=== PATIENT | female | born 1995 | race Hispanic/Latino ===

== ENCOUNTER 2022-07-12 11:36 | Inpatient (IN) | payer BC ==
--- OUTSIDE RECORDS SUMMARY | 2022-07-12 11:40 | XMS REPORT | Continuity of Care Document ---
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 METABOLIC [id number] 07:06:00 Test Item Value Reference Range Interpretation Comments SODIUM (test code = NA) mmol/L 136-145 POTASSIUM (test code = K) mmol/L 3.5-5.1 CHLORIDE (test code = CL) mmol/L 98-107 CARBON DIOXIDE (test code = CO2) mmol/L 21-32 ANION GAP (test code = GAP) 10-20 GLUCOSE (test code = GLU) mg/dL 74-106 BLOOD UREA NITROGEN (test code = BUN) mg/dL 7-18 GLOMERULAR FILTRATION RATE (test code mL/min >=60 = GFR) CREATININE (test code = CREAT) mg/dL 0.55-1.02 BUN/CREATININE RATIO (test code = 10-20 BUN/CREA) CALCIUM (test code = CA) mg/dL 8.5-10.1 HEPATIC FUNCTION [id number] 07:06:00 Test Item Value Reference Range Interpretation Comments TOTAL PROTEIN (test code = PROT) gram/dL 6.4-8.2 ALBUMIN (test code = ALB) g/dL 3.4-5.0 GLOBULIN (test code = GLOB) gram/dL 2.7-4.2 ALBUMIN/GLOBULIN RATIO (test code = 0.75-1.50 A/G) BILIRUBIN TOTAL (test code = BILT) mg/dL 0.0-1.0 BILIRUBIN DIRECT (test code = BILD) mg/dL 0.0-0.20 SGOT/AST (test code = AST) IUnit/L 15-37 SGPT/ALT (test code = ALT) IUnit/L 12-78 ALKALINE PHOSPHATASE TOTAL (test IUnit/L 45-117 code = ALKP) HCG SERUM [id number] 07:06:00 Test Item Value Reference Range Interpretation Comments HCG SERUM QUAL (test NEGATIVE NEGATIVE This HC GQL test is NOT code = HCGQL) applicable for MALE patients.Check with nurse about probable order error.If Tumor Marker Test needed, nu rse should order test "HCG TU"(Test #550.08397)---- - [id number] 07:06:00 Test Item Value Reference Range Interpretation Comments TROPONIN-I (test code = TROPI) ng/mL 0-0.045 CBC W/AUTO [id number] 07:02:00 Test Item Value Reference Range Interpretation Comments WHITE BLOOD CELL (test code = 11.1 K/mm3 4.5-12.5 N WBC) RED BLOOD CELL (test code = 4.77 mill/mm3 3.7-5.2 N RBC) HEMOGLOBIN (test code = HGB) 11.7 gram/dL 11.5-15.5 N HEMATOCRIT (test code = HCT) 37.7 % 36.0-46.0 N MEAN CELL VOLUME (test code = 79.0 fL 80-98 L MCV) MEAN CELL HGB (test code = MCH) 24.5 picogram 27.0-33.0 L MEAN CELL HGB CONCETRATION 31.0 gram/dL 33.0-36.0 L (test code = MCHC) RED CELL DISTRIBUTION WIDTH 15.7 % 11.6-16.2 N (test code = RDW) RED CELL DISTRIBUTION WIDTH SD 44.8 fL 37.0-51.0 N (test code = RDW-SD) PLATELET COUNT (test code = 197 K/mm3 150-450 N PLT) MEAN PLATELET VOLUME (test code 10.9 fL 6.7-11.0 N = MPV) NEUTROPHIL % (test code = NT%) 90.1 % 39.0-69.0 H IMMATURE GRANULOCYTE % (test 0.4 % 0.0-5.0 N code = IG%) LYMPHOCYTE % (test code = LY%) 4.3 % 25.0-55.0 L MONOCYTE % (test code = MO%) 4.4 % 0.0-10.0 N EOSINOPHIL % (test code = EO%) 0.5 % 0.0-5.0 N BASOPHIL % (test code = BA%) 0.3 % 0.0-1.0 N NUCLEATED RBC % (test code = 0.0 % 0-0 N NRBC%) NEUTROPHIL # (test code = NT#) 9.97 K/mm3 1.8-7.7 H IMMATURE GRANULOCYTE # (test 0.04 x10 3/uL 0-0.03 H code = IG#) LYMPHOCYTE # (test code = LY#) 0.47 K/mm3 1.0-5.0 L MONOCYTE # (test code = MO#) 0.49 K/mm3 0-0.8 N EOSINOPHIL # (test code = EO#) 0.05 K/mm3 0.0-0.5 N BASOPHIL # (test code = BA#) 0.03 K/mm3 0.0-0.2 N NUCLEATED RBC # (test code = 0.00 K/mm3 0.0-0.1 N NRBC#) MANUAL DIFF REQUIRED (test code NO = MDIFF) CBC W/AUTO [id number] 06:52:00 Test Item Value Reference Range Interpretation Comments WHITE BLOOD CELL (test code = K/mm3 4.5-12.5 WBC) RED BLOOD CELL (test code = RBC) mill/mm3 3.7-5.2 HEMOGLOBIN (test code = HGB) 11.7 gram/dL 11.5-15.5 N HEMATOCRIT (test code = HCT) 37.7 % 36.0-46.0 N MEAN CELL VOLUME (test code = fL 80-98 MCV) MEAN CELL HGB (test code = MCH) picogram 27.0-33.0 MEAN CELL HGB CONCETRATION (test gram/dL 33.0-36.0 code = MCHC) RED CELL DISTRIBUTION WIDTH % 11.6-16.2 (test code = RDW) RED CELL DISTRIBUTION WIDTH SD fL 37.0-51.0 (test code = RDW-SD) PLATELET COUNT (test code = PLT) K/mm3 150-450 MEAN PLATELET VOLUME (test code fL 6.7-11.0 = MPV) NEUTROPHIL % (test code = NT%) % 39.0-69.0 IMMATURE GRANULOCYTE % (test % 0.0-5.0 code = IG%) LYMPHOCYTE % (test code = LY%) % 25.0-55.0 MONOCYTE % (test code = MO%) % 0.0-10.0 EOSINOPHIL % (test code = EO%) % 0.0-5.0 BASOPHIL % (test code = BA%) % 0.0-1.0 NEUTROPHIL # (test code = NT#) K/mm3 1.8-7.7 LYMPHOCYTE # (test code = LY#) K/mm3 1.0-5.0 MONOCYTE # (test code = MO#) K/mm3 0-0.8 EOSINOPHIL # (test code = EO#) K/mm3 0.0-0.5 BASOPHIL # (test code = BA#) K/mm3 0.0-0.2 Urine [id number] 19:21:00 Test Item Value Reference Range Interpretation Comments Urine Color (test code = 5778-6) YELLOW [facility]LLOW [facility] [id number] 19:21:00 Test Item Value Reference Range Interpretation Comments Urine Clarity (test code = 91947-3) HAZY CLEAR [facility] Specific [id number] 19:21:00 Test Item Value Reference Range Interpretation Comments Urine Specific [place] (test code = 1.010 1.010-1.025 5811-5) [facility] [id number] 19:21:00 Test Item Value Reference Range Interpretation Comments Urine pH (test code = 23080-9) 7 5-7 [facility] Leukocyte [id number] 19:21:00 Test Item Value Reference Range Interpretation Comments Urine Leukocyte Esterase (test code NEGATIVE NEGATIVE = 5799-2) [facility] [id number] 19:21:00 Test Item Value Reference Range Interpretation Comments Urine Nitrite (test code = 41317-0) NEGATIVE NEGATIVE [facility] [id number] 19:21:00 Test Item Value Reference Range Interpretation Comments Urine Protein (test code = 5804-0) NEGATIVE NEGATIVE [facility] Glucose ([id number] 19:21:00 Test Item Value Reference Range Interpretation Comments Urine Glucose (UA) (test code = NEGATIVE NEGATIVE 2349-9) [facility] [id number] 19:21:00 Test Item Value Reference Range Interpretation Comments Urine Ketones (test code = 35833-6) NEGATIVE NEGATIVE [facility] [id number] 19:21:00 Test Item Value Reference Range Interpretation Comments Urine Urobilinogen (test code = 0.2 0.2-1 18040-9) [facility] [id number] 19:21:00 Test Item Value Reference Range Interpretation Comments Urine Bilirubin (test code = 1978-6) NEGATIVE NEGATIVE [facility] [id number] 19:21:00 Test Item Value Reference Range Interpretation Comments Urine Blood (test code = 34212-9) NEGATIVE NEGATIVE [facility] [id number] 19:21:00 Test Item Value Reference Range Interpretation Comments Urine WBC (test code = 5821-4) 0-5 0-5 [facility] [id number] 19:21:00 Test Item Value Reference Range Interpretation Comments Urine RBC (test code = 88580-0) NONE 0-5 [facility] [id number] 19:21:00 Test Item Value Reference Range Interpretation Comments Urine Bacteria (test code = 74909-9) FEW NONE [facility] Epithelial [id number] 19:21:00 Test Item Value Reference Range Interpretation Comments Urine Epithelial Cells (test code = FEW NONE 21114-2) [facility] [id number] 19:21:00 Test Item Value Reference Range Interpretation Comments Urine Mucus (test code = 8247-9) FEW RARE H [facility] [id number] 19:01:00 [facility] [address] [address] PatientName: SHIV RODRIGUEZ MR #: [id number] : 1995 Age/Sex: 22/F Req #: [id number] Adm Physician: Ordered by: ABDIRASHID LY BANKING MANAGEMENT CONSULTING MANAGER Report #: [id number] Location: ER Room/Bed: ___ Procedure: [id number] US/US TRANSVAGINAL Exam Date: 08/27/18 Exam Time: 1751 REPORT STATUS: Signed EXAM: US TRANSVAGINAL INDICATION: Accident, evaluate well being COMPARISON: None TECHNIQUE: Transabdominal and transvaginal grayscale and color doppler sonographic images of the pelvis were obtained. Transvaginal imaging was medically necessary to better evaluate the fetus. FINDINGS: UTERUS: Orientation: Anteverted Size: 11.3 x 7.7 x 8.8 Mass: None Cervix: Normal GESTATIONAL SAC: Intrauterine, normal in appearance. No subchorionic hemorrhage. YOLK SAC: Visualized EMBRYO/FETUS: [place]-rump length: 4.8 cm Estimated sonographic gestational age: 11w 4d Cardiac activity: 163 bpm RIGHT OVARY: Size: 5.7 x 2.1 x 2.2 Abnormal mass/cyst: 1.5 cm corpus cyst. LEFT OVARY: Size: 3.7 x 2.1 x 3 Abnormal mass/cyst: None Small amount of pelvic fluid or adnexal mass. IMPRESSION: Single living intrauterine . Sonographic gestational age estimated at 11weeks 4days. Signed by: Dr. Bharat Caballero M.D. on 08/27/2018 7:03 PM Dictated By: BHRAAT CABALLERO MD 02 Transcribed By: ANISHA on 08/27/181902 COPY TO: ABDIRASHID LY NP
[2022-07-12] MEDS ORDERED: NA CHLORIDE 0.9% 1,000 ML ONE (12:19)
[2022-07-12 12:40] LABS: Absolute Lymphocytes (CBC) 0.8 K/uL (0.7-4.9); Hematocrit 37.2 % (36.0-45.0); Lymphocytes % 3.2 % (15.3-44.8); MCV 77.2 fL (80-100); MPV 9.1 fL (7.6-11.3); RBC Red Blood Cell Count 4.82 M/uL (3.86-4.86)
[2022-07-12 12:59] LABS: Albumin 3.7 g/dL (3.4-5.0); Bilirubin Total 0.9 mg/dL (0.2-1.0); Potassium 3.3 mmol/L (3.5-5.1); Protein, Total 8.3 g/dL (6.4-8.2)
[2022-07-12] MEDS ORDERED: PIPERACIL/TAZO 3.375 GM VIAL IV ONE (13:07)
[2022-07-12] MEDS ORDERED: NA CHLORIDE 0.9% 100 ML ONE (13:07)
[2022-07-12 13:14] LABS: Urine Blood 3+ (Negative); Urine Glucose Negative (Negative); Urine Protein 2+ (Negative); Urine pH 6.5 (5.0-7.0)
--- NOTE | 2022-07-12 14:16 | RAD REPORT ---
EXAM DESCRIPTION: CT - Abdomen Pelvis W Contrast - 07/12/2022 1:34 pm CLINICAL HISTORY: Abdominal pain, right lower abdomen. Vomiting COMPARISON: None. TECHNIQUE: Biphasic, helical CT imaging of the abdomen and pelvis was performed following intravenou s administration of 100 mL Isovue-[address] scans are performed using dose optimization technique as appropriate and may include automated exposure control or mA/KV adjustment according to patient size. FINDINGS: No suspicious findings in the lung bases. The liver, spleen, and pancreas show no suspicious findings. Gallbladder and biliary tree are also wi thout suspicious finding. Symmetric renal function is seen. No suspicious renal mass. No left hydronephrosis. . Inflammatory changes adjacent to the cecal wall, with heterogeneous enhancement at the base of the ap pendix. Lobulated marginal enhancement is seen at and inferior to that region, see venous phase axial images 64- 59/86. A small echogenic focus near the base of the appendix on axial image 54 may repres ent a small appendicolith. The distal appendix is distended with mucosal hyperenhancement, tracking a long the right pelvic sidewall, measuring 16 millimeter in caliber. The distal appendix and the adjac ent inflammatory changes about the mid to distal right ureter, which demonstrates moderate distention with mild urothelial enhancement as seen on axial image 46. There is mild right hydronephrosis. No f ree air, free fluid or inflammatory stranding. No hernia, mass or bulky lymphadenopathy. The urinary bladder is without significant finding. IUD appears to be in satisfactory position within the uterus. Mild free fluid layering in the pelvis. No suspicious bony findings. IMPRESSION: Right lower quadrant inflammatory changes contiguous with the cecal bulb, with distentio n of the distal appendix. Findings are concerning for acute appendicitis with rupture. Mild free flui d layering in the pelvis. The inflammatory changes involve the mid to distal right ureter. There is right mild hydroureteroneph rosis with reactive urothelial enhancement just above the level of the inflammation. The findings were communicated to Ze Valentine on 07/12/2022 at 14:08 hours.
--- NOTE | 2022-07-12 14:24 | ER ---
Nurse's Notes [facility] Name: Franny Marc Age: 26 yrs Sex: Female : 1995 Arrival Date: 07/12/2022 Time: 11:37 Bed 10 Private MD: Diagnosis: Acute appendicitis with localized peritonitis-with rupture;Hypokalemia Presentation: 07/12 11:51 Chief complaint: Patient states: [facility]; I started having jh5 right lower abdominal pain yesterday all of a sudden and in the last 24 hours i have vomited 6-7x. Coronavirus screen: Vaccine status: Patient reports receiving the 2nd dose of the covid vaccine. Client denies travel out of the [place] in the last 14 days. Ebola Screen: Patient negative for fever greater than or equal to 101.5 degrees Fahrenheit, and additional compatible Ebola Virus Disease symptoms Patient denies exposure to infectious person. Patient denies travel to an Ebola-affected area in the 21 days before illness onset. Initial Sepsis Screen: Does the patient meet any 2 criteria? No. Patient's initial sepsis screen is negative. Does the patient have a suspected source of infection? No. Patient's initial sepsis screen is negative. Risk Assessment: Do you want to hurt yourself or someone else? Patient reports no desire to harm self or others. Onset of symptoms was July 11, 2022. 11:51 Method Of Arrival: Ambulatory [facility] 11:51 Acuity: ROBERT 3 5 Triage Assessment: 11:53 General: Appears uncomfortable, slender, well groomed, well developed, Behavior is [facility] calm, cooperative, appropriate for age. Pain: Complains of pain in abdomen. GI: Reports lower abdominal pain, nausea, vomiting. 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 - Social history:: Smoking status: Patient denies any tobacco usage or history of. Screenin:23 [facility] ED Fall Risk Assessment (Adult) History of falling in the last 3 months, ap3 including since admission No falls in past 3 months (0 pts). Abuse screen: Denies threats or abuse. Nutritional screening: No deficits noted. Tuberculosis screening: No symptoms or risk factors identified. Assessment: 14:49 GI: Bowel sounds present X 4 quads. Abd is soft Abdomen is tender to palpation. ap3 Vital Signs: 11:51 BP 130 / 82; Pulse 95; Resp 18; Temp 98.7; Pulse Ox 100% ; Weight 65.77 kg; Height 4 5 ft. 11 in. (149.86 cm); Pain 7/10; 13:27 BP 115 / 70; Pulse 91; Pulse Ox 100% on R/A; ap3 11:51 Body Mass Index 29.29 (65.77 kg, 149.86 cm) 5 ED Course: 11:37 Patient arrived in ED. am2 11:48 Rosalba Montalvo FNP-C is PHCP. snw 11:48 Ze Valentine MD is Attending Physician. snw 11:53 Triage completed. 5 11:53 Arm band placed on right wrist. 5 12:24 Alice Aranda, CHELSEA is Primary Nurse. ap3 12:25 Inserted saline lock: 20 gauge in right antecubital area, using aseptic technique. ap3 Blood collected. 13:23 Patient has correct armband on for positive identification. Bed in low position. Call ap3 light in reach. 13:23 No provider procedures requiring assistance completed. ap3 14:22 Christopher Lynch MD is Hospitalizing Provider. snw 14:50 Patient admitted, IV remains in place. ap3 Administered Medications: 12:25 Drug: NS 0.9% 1000 ml Route: IV; Rate: 1 bolus; Site: right antecubital; ap3 14:51 Follow up: IV Status: Infusion continued ap3 13:13 Drug: Zosyn (piperacillin-tazobactam) 3.375 grams Route: IVPB; Infused Over: 60 mins; ap3 Site: right antecubital; 14:51 Follow up: IV Status: Completed infusion ap3 14:50 Not Given (OR didnt want): NS 0.9% with KCl 20 mEq/L 1000 ml IV at 125 ml/hr continuous ap3 14:50 Not Given (Patient Refused): Phenergan (promethazine) 6.25 mg IVP once ap3 14:51 Not Given (Patient Refused): fentaNYL (PF) 50 mcg IVP once ap3 Medication: 13:23 VIS not applicable for this client. ap3 Outcome: 14:23 Decision to Hospitalize by Provider. snw 14:50 Admitted to OR accompanied by nurse. ap3 14:50 Condition: stable 14:50 Instructed on the need for admit. 14:51 Patient left the ED. ap3 Signatures: Rosalba Montalvo, CORPORATE DIRECTOR OF HUMAN RESOURCES-C CORPORATE DIRECTOR OF HUMAN RESOURCES-Csnw Alice Betancourt am2 Alice Aranda, RN RN ap3 Cris Dunbar RN RN jh5
--- NOTE | 2022-07-12 14:24 | EDPHYS ---
Physician Documentation [facility] Name: Franny Marc Age: 26 yrs Sex: Female : 1995 Arrival Date: 07/12/2022 Time: 11:37 Bed 10 Private MD: ED Physician Ze Valentine HPI: 07/12 12:49 This 26 yrs old Female presents to ER via Ambulatory with complaints of snw Abdominal Pain, Nausea/Vomiting. 12:49 The patient presents with abdominal pain right lower quadrant. Onset: The snw symptoms/episode began/occurred 3 day(s) ago, and became worse and became persistent. The symptoms are described as constant. Severity of pain: At its worst the pain was moderate severe. The patient has not experienced similar symptoms in the past. The patient has been recently seen at an urgent care, just prior to arrival, for similar complaints, labs were performed. 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 - Social history:: Smoking status: Patient denies any tobacco usage or history of. ROS: 12:45 Constitutional: Negative for fever, chills, and weight loss, Eyes: Negative for injury, snw pain, redness, and discharge, ENT: Negative for injury, pain, and discharge, Neck: Negative for injury, pain, and swelling, Cardiovascular: Negative for chest pain, palpitations, and edema, Respiratory: Negative for shortness of breath, cough, wheezing, and pleuritic chest pain, Back: Negative for injury and pain, : Negative for injury, bleeding, discharge, and swelling, MS/Extremity: Negative for injury and deformity, Skin: Negative for injury, rash, and discoloration, Neuro: Negative for headache, weakness, numbness, tingling, and seizure, Psych: Negative for depression, anxiety, suicide ideation, homicidal ideation, and hallucinations. 12:45 Abdomen/GI: Positive for abdominal pain, nausea and vomiting, of the right lower quadrant. Exam: 12:44 Constitutional: This is a well developed, well nourished patient who is awake, alert, snw and in no acute distress. Head/Face: Normocephalic, atraumatic. Eyes: Pupils equal round and reactive to light, extra-ocular motions intact. Lids and lashes normal. Conjunctiva and sclera are non-icteric and not injected. Cornea within normal limits. Periorbital areas with no swelling, redness, or edema. ENT: Nares patent. No nasal discharge, no septal abnormalities noted. Tympanic membranes are normal and external auditory canals are clear. Oropharynx with no redness, swelling, or masses, exudates, or evidence of obstruction, uvula midline. Mucous membranes moist. Neck: Trachea midline, no thyromegaly or masses palpated, and no cervical lymphadenopathy. Supple, full range of motion without nuchal rigidity, or vertebral point tenderness. No Meningismus. Chest/axilla: Normal chest wall appearance and motion. Nontender with no deformity. No lesions are appreciated. Cardiovascular: Regular rate and rhythm with a normal S1 and S2. No gallops, murmurs, or rubs. Normal PMI, no JVD. No pulse deficits. Respiratory: Lungs have equal breath sounds bilaterally, clear to auscultation and percussion. No rales, rhonchi or wheezes noted. No increased work of breathing, no retractions or nasal flaring. Back: No spinal tenderness. No costovertebral tenderness. Full range of motion. Skin: Warm, dry with normal turgor. Normal color with no rashes, no lesions, and no evidence of cellulitis. MS/ Extremity: Pulses equal, no cyanosis. Neurovascular intact. Full, normal range of motion. Neuro: Awake and alert, GCS 15, oriented to person, place, time, and situation. Cranial nerves II-XII grossly intact. Motor strength 5/5 in all extremities. Sensory grossly intact. Cerebellar exam normal. Normal gait. Psych: Awake, alert, with orientation to person, place and time. Behavior, mood, and affect are within normal limits. 12:44 Abdomen/GI: Inspection: abdomen appears normal, Bowel sounds: normal, Palpation: moderate abdominal tenderness, in the right upper quadrant, left upper quadrant and left lower quadrant, severe abdominal tenderness, in the right lower quadrant. Vital Signs: 11:51 BP 130 / 82; Pulse 95; Resp 18; Temp 98.7; Pulse Ox 100% ; Weight 65.77 kg; Height 4 [facility] ft. 11 in. (149.86 cm); Pain 7/10; 13:27 BP 115 / 70; Pulse 91; Pulse Ox 100% on R/A; ap3 11:51 Body Mass Index 29.29 (65.77 kg, 149.86 cm) [facility] MDM: 11:48 Patient medically screened. snw 12:46 Historians other than the Patient: UC - urine from UC with 3+ blood and 3+ protein, pt snw states she is due to start cycle soon. 12:47 Data reviewed: vital signs, nurses notes, lab test result(s), lab called with WBC snw 25,000+. Consideration of Admission/Observation Escalation of care including admission/observation considered. will await imaging to call Dr. Lynch. I considered the following discharge prescriptions or medication management in the emergency department Medications were administered in the Emergency Department. See MAR Pt with exquisite abd pain, vomiting, and lab called with WBC 25,000+. Counseling: I had a detailed discussion with the patient and/or guardian regarding: the historical points, exam findings, and any diagnostic results supporting the discharge/admit diagnosis, lab results, radiology results, the need for further work-up and treatment in the hospital. 14:24 Differential diagnosis: appendicitis, Ectopic , Ovarian Torsion, snw Pyelonephritis. Management of patient was discussed with the following: Dr. Lynch, he is on his way to see the patient. . Response to treatment: the patient's symptoms have mildly improved after treatment. 07/12 12:03 Order name: CBC with Diff w 07/12 12:03 Order name: CMP snw 07/12 12:03 Order name: Lipase snw 07/12 12:03 Order name: Urine Microscopic Only snw 07/12 12:46 Order name: CBC with Automated Diff; Complete Time: 12:50 EDMS 07/12 12:59 Order name: Comprehensive Metabolic Panel; Complete Time: 13:00 EDMS 07/12 12:03 Order name: CT Abd/Pelvis - IV Contrast Only w 07/12 12:59 Order name: Lipase; Complete Time: 13:00 EDMS 07/12 13:14 Order name: Urine Dipstick-Ancillary; Complete Time: 13:19 EDMS 07/12 13:18 Order name: Urine --Ancillary (enter results) em1 07/12 13:26 Order name: Urine --Ancillary; Complete Time: 13:32 EDMS 07/12 14:17 Order name: CT; Complete Time: 14:19 EDMS 07/12 14:26 Order name: SARS RAPID ss 07/12 12:03 Order name: IV Saline Lock; Complete Time: 12:25 snw 07/12 12:03 Order name: Labs collected and sent; Complete Time: 12:25 snw 07/12 12:03 Order name: Urine Dipstick-Ancillary (obtain specimen); Complete Time: 13:13 snw 07/12 12:03 Order name: Urine Test (obtain specimen); Complete Time: 13:13 snw 07/12 14:19 Order name: NPO; Complete Time: 14:26 snw Administered Medications: 12:25 Drug: NS 0.9% 1000 ml Route: IV; Rate: 1 bolus; Site: right antecubital; ap3 14:51 Follow up: IV Status: Infusion continued ap3 13:13 Drug: Zosyn (piperacillin-tazobactam) 3.375 grams Route: IVPB; Infused Over: 60 mins; ap3 Site: right antecubital; 14:51 Follow up: IV Status: Completed infusion ap3 14:50 Not Given (OR didnt want): NS 0.9% with KCl 20 mEq/L 1000 ml IV at 125 ml/hr continuous ap3 14:50 Not Given (Patient Refused): Phenergan (promethazine) 6.25 mg IVP once ap3 14:51 Not Given (Patient Refused): fentaNYL (PF) 50 mcg IVP once ap3 Disposition Summary: 07/12/22 14:23 Hospitalization Ordered Hospitalization Status: Inpatient Admission snw Provider: Christopher Lynch Location: Telemetry/[facility] (Inpatient) snw Condition: Stable snw Problem: new snw Symptoms: are unchanged snw Bed/Room Type: Standard snw Room Assignment: snw Diagnosis - Acute appendicitis with localized peritonitis - with rupture snw - Hypokalemia snw Forms: - Medication Reconciliation Form snw - SBAR form snw Signatures: Dispatcher [employer] Rosalba Girard FNP-C PUBLIC INFORMATION DIRECTOR-Csnw Alice Aranda RN RN ap3 Cris Dunbar, RN RN [id number]
[2022-07-12] MEDS ORDERED: PROMETHAZINE INJ 25 MG/ML AMP ONE (14:40)
[2022-07-12] MEDS ORDERED: propofoL 200 MG/20 ML VIAL IV ONE (14:41)
[2022-07-12] MEDS ORDERED: FENTANYL CITR 100 MCG/2 ML ONE ×2 (14:42→14:44)
[2022-07-12] MEDS ORDERED: NS KCL 20MEQ 1,000 ML IV ONE (14:42)
[2022-07-12] MEDS ORDERED: LIDOCAINE 2% MPF 5 ML VIAL ONE (14:42)
[2022-07-12] MEDS ORDERED: ROCURONIUM 50 MG/5 ML VIAL IV ONE (14:43)
[2022-07-12] MEDS ORDERED: KETOROLAC 30 MG/ML INJ ONE (14:44)
[2022-07-12] MEDS ORDERED: ONDANSETRON 4 MG/2 ML VIAL ONE (14:45)
[2022-07-12] MEDS ORDERED: dexAMETHasone 10 MG/ML VIAL ONE (14:45)
[2022-07-12] MEDS ORDERED: Ringers Lactate 1,000 ML IV ONE ×2 (15:03→16:45)
[2022-07-12 15:05] LABS: SARS-CoV-2 Antigen Rapid Res Negative (Negative)
[2022-07-12] MEDS ORDERED: ONDANSETRON 4 MG/2 ML VIAL IV PRN (15:08)
[2022-07-12] MEDS ORDERED: MORPHINE 4 MG/ML SYR IV PRN (15:08)
[2022-07-12] MEDS: BUPIVACAINE 0.25% PF 30 ML VIAL ONE ×2 (15:27→16:02)
[2022-07-12] MEDS ORDERED: Phenylephrine HCl 10 MG/ML 1 ML VIAL ONE (15:45)
[2022-07-12] MEDS: D5 0.45 NS 1,000 ML IV SCH (16:00)
[2022-07-12] MEDS ORDERED: GLYCOPYRROLATE 0.2 MG/ML SYR ONE (16:03)
--- NOTE | 2022-07-12 16:47 | P.OP ---
Preoperative diagnosis: Acute Appendicitis Postoperative diagnosis: Acute Appendicitis Primary procedure: Laparoscopic Appendectomy Anesthesia: GETA + Local Estimated blood loss: <10cc Specimen: Appendix Findings: Acute Appendicits with microperforation, uteral adhesions Complications: None Transferred to: Recovery Room Condition: Good
[2022-07-12] MEDS ORDERED: HYDROCODONE/APAP 7.5/325 MG TAB PO PRN (16:58)
[2022-07-12] MEDS ORDERED: NEOSTIGMINE 1 MG/ML -10 ML VIAL ONE (17:19)
[2022-07-12] MEDS ORDERED: HYDROMORPHONE HCL 1 MG/ML INJ ONE (17:30)
[2022-07-12 18:09] VITALS: BMI 29.2
[2022-07-12] MEDS: D5.45NS W/KCL 20MEQ 1,000 ML IV SCH (18:09)
[2022-07-12] MEDS: PIPER TAZO 3.375 GM in NA CHLORIDE 0.9% 100 ML IV SCH (18:10)
--- NOTE | 2022-07-12 18:44 | OP ---
Date of Procedure: 07/12/2022 Surgeon: Christopher Lynch MD, Preoperative Diagnosis: Acute appendicitis. Postoperative Diagnosis: Acute appendicitis. Procedure: Laparoscopic appendectomy. Anesthesia: General endotracheal plus local with 0.25% Marcaine. Estimated Blood Loss: Less than 10 cc. Specimen: Vermiform appendix. Findings: Acute appendicitis with microperforation significant ureteral adhesions, pelvic contaminat ion with murky fluid. Significant inflammatory changes to the right lower quadrant and small bowel, which extended into the pelvis. Complications: None. Disposition: The patient was transferred to the recovery room in good condition. Procedure In Detail: After informed consent was obtained, the patient was brought into the operating room, prepped and draped in the usual sterile fashion after adequate anesthesia was achieved. An in fraumbilical area was anesthetized with 0.25% Marcaine, sharply incised. A 5 mm trocar was placed un tracy direct visualization without evidence of complication. Insufflation obtained to 15 mmHg at this time. There was no injury to vital structures upon entry into the abdomen. At this point, I opted t o place a suprapubic 5 mm trocar, which was placed under direct visualization without evidence of com plication after appropriately anesthetizing the skin. I then upsized the umbilical trocar to 12 mm u nder direct visualization without evidence of complication. The patient was noted to have a suprapub ic hernia as well with incarcerated omental fat. I placed additional trocar to the right lower quadr ant, which was a 5 mm trocar placed under direct visualization without evidence of complication. I t winifred used LigaSure to dissect the omental fat adhesions from the midline suprapubic hernia and reduced it to the normal anatomic position. At this point, there were significant adhesions between the fal lopian tube and the anterior abdominal wall and the colon as well as the uterus. I dissected bluntly around this area to dissect out the appendix and was found to be in the right lower quadrant firmly adhered to the abdominal wall with a small bowel loop as well near the terminal ileum extending to th e same area making a J-loop type orientation. At this point, I placed the patient in steep Trendelen jovany position, rolled the patient to the right, and dissected circumferentially along the lateral abd ominal wall to dissect free the appendix after following the tenia. The appendix was obviously infla med at this point. I was able to separate it from the adnexal structures using LigaSure device. The fallopian tube was kept intact throughout without any narrowing or any energy device is being applie d to this as the ovary was primarily more firmly adhered to the appendix. Blunt dissection was able to dissect this clear and flip the fallopian tube up away along with the ovary and I was able to diss ect clearly the appendix free at this point. I then reduced it back to the normal anatomic position, created a mesoappendiceal window with a Awa retractor, fired the Endo-ELAYNE 45 purple load across the base of the appendix with good apposition of tissues right at the confluence of the cecum. I the n used the LigaSure to take the mesoappendix down without evidence of complication. The appendix was then placed in EndoCatch bag, removed through the umbilical trocar, and sent off for pathologic exam ination. I then copiously irrigated the pelvis and right lower quadrant with approximately 2 L of sa line, suctioned out until completely clear. I then returned the adnexal structures to the normal elana tomic position, inspected the area for hemostasis. No additional hemostatic maneuvers were required. No additional abscesses were appreciated in the abdomen at this point and there was no additional c ontamination after irrigation at this point. I opted to close the umbilical trocar site using a Risa lancaster-Emely suture passer with 0 Vicryl in a running fashion with good approximation of tissues. I t hen desufflated the abdomen under direct visualization without evidence of complication and removed t he remaining trocars. I placed the patient back in neutral position after the trocars removed under direct visualization. I copiously irrigated all 3 incisions and closed them with interrupted 4-0 Mon ocryl without evidence of complication. The umbilical trocar site was the only 1 closed with a Kennedy r-Emely suture passer with 0 Vicryl in an interrupted fashion with good approximation of tissues, remaining closed with simple interrupted skin level Monocryl. At this point, Dermabond was placed ov er top. The patient tolerated the procedure well without evidence of complication and transferred to PACU in good condition. All counts were correct at the end of the case. TK/JUSTINEL Voice ID: [id number] Report ID: [id number]
[2022-07-12] MEDS ORDERED: INFLUENZA VACCINE (for 6+ mo) 0.5 ML DOSE IMVAC ONE (20:00)
[2022-07-12] MEDS: INSULIN -REGULAR HUMAN 50 UNIT/0.5 ML ML SQ SCH (21:00)
--- NOTE | 2022-07-12 23:25 | HP ---
Date of Admission: 07/12/2022 Brief History Of Present Illness: The patient is a 26-year-old female who presents with a 3 day history of periumbilical, now right lower quadrant abdominal pain. The pain got progressively w orse over the past 3 days. She is not aware of any sick contacts, recent travel, or no new food expo sures. She has been having normal bowel function at this point. She denies any change in her bowel or bladder habits and no urinary difficulty. No swelling in her extremities as well. She has felt s omewhat feverish otherwise, but the pain was [id number] prior to arrival. She was given pain medication and has significant improvement in her symptoms, but continued to be present and have not resolved. Past Medical History: Negative. Past Surgical History: . She has had an IUD placed as well. Allergies: NO KNOWN DRUG ALLERGIES. Review of Systems: A 10-point review of systems other than HPI, denied. Physical Examination: Vital Signs: At the time of my examination, her blood pressure 138/82, pulse is 95, respiratory rate is 18, temperature 98.7, pulse ox 100% on room air. She is approximately 65 kg. General: She is awake, alert, and oriented. Psychiatrically appropriate, conversive. HEENT: She is normocephalic. Sclerae icteric. Mucous membranes are moist. Oropharynx clear. Neck: Supple without JVD. Chest: Normal expansion and excursion. Cardiovascular: Regular rate and rhythm. Pulmonary: Clear to auscultation bilaterally. Abdomen: Soft with positive right lower quadrant focal peritonitis. Positive rebound, positive guar ding. No McBurney's point. She also has extension to the infraumbilical position, near the midline and in the suprapubic region as well. There is tenderness and guarding in this area. Laboratory Data: She had a laboratory exam, which revealed a white blood cell count of 25.4, hemoglo bin 12.5, her hematocrit is 37.2, and platelet count 255. Chemistry shows a sodium of 132, potassium 3.3, chloride 98, carbon dioxide 27, BUN 9, creatinine 0.5, glucose 129, total bilirubin 0.9, AST 10 , ALT 18, alkaline phosphatase 110, and lipase 56. Her urine showed 3+ ketones, 3+ blood, 1+ leukocy te esterase, 2+ protein. Urine test was negative. COVID was negative. She had a CT scan of the abdomen and pelvis, which was officially read as right lower quadrant inflammatory changes con tiguous with a cecal bulge with distention of the distal appendix. Findings are concerning for acute appendicitis with rupture. Mild free fluid layering in the pelvis. Inflammatory changes involving the mid to right distal ureter. There is right mild hydroureteronephrosis with reactive urothelial e nhancement just above the level of inflammation. Assessment And Plan: This is a 26-year-old female who comes in with signs and symptoms of acute appe ndicitis, possible perforation. 1.IV fluid hydration. 2.Antibiotic coverage. 3.I have explained risks, benefits, and alternatives of laparoscopic and possible open appendectomy including, but not limited to bleeding, infection, damage to surrounding tissues, need for further op eration procedures. The patient agreed to proceed as indicated. TANJA/JULIANE Voice ID: [id number]
[2022-07-13] MEDS: D5 0.45 NS 1,000 ML IV SCH
[2022-07-13] MEDS ORDERED: NA CHLORIDE 0.9% 500 ML IV ONE (01:05)
[2022-07-13] MEDS: PIPER TAZO 3.375 GM in NA CHLORIDE 0.9% 100 ML IV SCH ×3 (01:11→16:42)
[2022-07-13 01:49] LABS: Hematocrit 29.2 % (36.0-45.0)
[2022-07-13] MEDS ORDERED: Ringers Lactate 500 ML IV ONE (01:59)
[2022-07-13] MEDS ORDERED: HYDROCODONE/APAP 5/325 MG TAB PO PRN (02:00)
[2022-07-13] MEDS ORDERED: NA CHLORIDE 0.9% 0 ML ONE (02:07)
[2022-07-13] MEDS ORDERED: Ringers Lactate 1,000 ML IV ONE (02:08)
[2022-07-13] MEDS: D5.45NS W/KCL 20MEQ 1,000 ML IV SCH ×3 (02:35→16:49)
--- NOTE | 2022-07-13 02:36 | P.CNS ---
Date of Consult: 07/13/22 Reason for Consult: Medical Management- Hypotension Requesting Physician: Christopher Lynch Chief Complaint: Acute Appendicitis History of Present Illness: Patient is a 26-year-old female with no chronic medical problems who underwent laparoscopic appendectomy yesterday for treatment of acute appendicitis with microperforation and uteral adhesions. There were no complications with the procedure. Hospitalist was contacted this morning because patient's blood pressure has been downtrending and is now as low as 80/42 despite continuous IV hydration and a 500 mL bolus. She did receive a norco 7.5 earlier for pain. Per chart review, her blood pressure has been running 90s/50s throughout the evening. She is not tachycardic or febrile. WBC preoperatively was 25. When I went to assess the patient, she was in no acute distress or experiencing any unexpected pain. She did report some mild dizziness but resting comfortably otherwise. Abdomen was soft and non-tender, incision sites appropriate. Allergies TUNA Allergy (Uncoded 07/12/22 15:08) Hives/Rash Home Medications: NK [No Home Meds] 07/12/22 - Past Medical/Surgical History Diabetic: No Past Medical History: Patient denies medical history -: C Section -: Appendectomy Psychosocial/ Personal History: Patient lives at home with her family. - Social History Smoking Status: Never smoker Alcohol use: Yes CD- Drugs: No Caffeine use: No Place of Residence: Home Review of Systems General: Other (Dizziness) Physical Examination Temp Pulse Resp BP Pulse Ox 96.8 F 71 16 80/42 L 97 07/13/22 01:50 07/13/22 01:50 07/13/22 00:00 07/13/22 01:50 07/13/22 01:50 General: Alert, In no apparent distress HEENT: Atraumatic, PERRLA, Sclerae nonicteric Neck: Supple, 2+ carotid pulse no bruit Respiratory: Clear to auscultation bilaterally, Normal air movement Cardiovascular: Regular rate/rhythm, Normal S1 S2 Gastrointestinal: Normal bowel sounds, No tenderness Musculoskeletal: No tenderness Integumentary: No rashes, Other (incision sites without drainage or significant erythema) Neurological: Normal speech, Normal affect Laboratory Data (last 24 hrs) 07/12/22 12:22: Sodium 132 L, Potassium 3.3 L, BUN 9, Creatinine 0.56, Glucose 129 H, Total Bilirubin 0.9, AST 10 L, ALT 18, Alkaline Phosphatase 110, Lipase 56 L 07/12/22 12:22: WBC 25.40 H*, Hgb 12.5, Hct 37.2, Plt Count 255 - Problems (1) Acute appendicitis Current Visit: Yes Status: Acute Qualifiers: Acute appendicitis type: unspecified acute appendicitis type Qualified Code(s): K35.80 - Unspecified acute appendicitis (2) Anemia Current Visit: Yes Status: Chronic Qualifiers: Anemia type: unspecified type Qualified Code(s): D64.9 - Anemia, unspecified (3) Hypotension Current Visit: Yes Status: Acute Qualifiers: Hypotension type: hypotension due to drug Qualified Code(s): I95.2 - Hypotension due to drugs Conclusions/Impression: We will reassess blood pressure after the additional 500 mL LR bolus, which is currently running. Hold all narcotics until BP improves. I do not believe this hypotension is secondary to sepsis/septic shock by any means. Patient is nontoxic appearing, afebrile, with a normal heart rate. She is young and healthy and appears to have a chronically borderline low blood pressure. These low blood pressure readings are likely secondary to the norco she received and patient resting in bed. Patient ambulated to the restroom and her BP improved to 104/62. Will continue to follow patient. Physician Review: Patient Assessed, Agree with Above Assessment and Plan Critical Care: No Time Spent Managing Pts care (In Minutes): 30
[2022-07-13 05:41] LABS: Absolute Lymphocytes (CBC) 0.7 K/uL (0.7-4.9); Hematocrit 27.7 % (36.0-45.0); Lymphocytes % 3.7 % (15.3-44.8); MCV 78.9 fL (80-100); MPV 9.5 fL (7.6-11.3); RBC Red Blood Cell Count 3.51 M/uL (3.86-4.86)
[2022-07-13 06:00] LABS: Albumin 2.7 g/dL (3.4-5.0); Bilirubin Direct 0.1 mg/dL (0-0.2); Bilirubin Total 0.6 mg/dL (0.2-1.0); Magnesium 2.1 mg/dL (1.6-2.4); Phosphorus 1.8 mg/dL (2.5-4.9); Potassium 3.7 mmol/L (3.5-5.1)
[2022-07-13] MEDS: INSULIN -REGULAR HUMAN 50 UNIT/0.5 ML ML SQ SCH ×4 (07:30→20:22)
[2022-07-13] MEDS: POTASS/SODIUM PHOSPHATE 1 PKT POWD.PACK PO SCH ×2 (07:39→09:49)
[2022-07-13] MEDS ORDERED: POTASSIUM 25 MEQ EFFERV TAB PO ONE (09:00)
[2022-07-13] MEDS: ACETAMINOPHEN 500 MG TAB PO PRN ×2 (13:17→20:20)
[2022-07-14] MEDS: PIPER TAZO 3.375 GM in NA CHLORIDE 0.9% 100 ML IV SCH ×3 (01:30→17:15)
[2022-07-14 04:10] LABS: Absolute Lymphocytes (CBC) 1.4 K/uL (0.7-4.9); Hematocrit 25.1 % (36.0-45.0); MCV 79.1 fL (80-100); MPV 9.5 fL (7.6-11.3); RBC Red Blood Cell Count 3.17 M/uL (3.86-4.86)
[2022-07-14 04:20] LABS: Potassium 3.4 mmol/L (3.5-5.1)
[2022-07-14] MEDS: POTASS/SODIUM PHOSPHATE 1 PKT POWD.PACK PO SCH ×2 (06:47→09:10)
[2022-07-14] MEDS: ACETAMINOPHEN 500 MG TAB PO PRN ×3 (06:51→20:25)
[2022-07-14] MEDS: INSULIN -REGULAR HUMAN 50 UNIT/0.5 ML ML SQ SCH ×4 (07:30→20:21)
[2022-07-14] MEDS ORDERED: POTASSIUM CL SA 10 MEQ TAB PO ONE (09:00)
[2022-07-15] MEDS: PIPER TAZO 3.375 GM in NA CHLORIDE 0.9% 100 ML IV SCH ×2 (00:38→07:39)
[2022-07-15 04:52] LABS: Absolute Lymphocytes (CBC) 1.4 K/uL (0.7-4.9); Hematocrit 29.6 % (36.0-45.0); MCV 79.2 fL (80-100); RBC Red Blood Cell Count 3.74 M/uL (3.86-4.86)
[2022-07-15 05:11] LABS: Potassium 4.1 mmol/L (3.5-5.1)
[2022-07-15 05:23] VITALS: O2SAT 98
[2022-07-15] MEDS: INSULIN -REGULAR HUMAN 50 UNIT/0.5 ML ML SQ SCH (07:30)
[2022-07-15 09:09] VITALS: BP 94/53; TEMP 97.9
== END 2022-07-15 10:08 | disposition home or self-care (01) | DRG 339 ==
LOC: ER 11:36 → ERHOLD 15:06 → 2ND 17:32
PROVIDERS: ADMIT Surgery; ATTEND Surgery
PROC: 0DTJ4ZZ Resection of Appendix, Percutaneous Endoscopic Approach (ICD-10-PCS; principal; 2022-07-12 15:15)
DX: K35.32 Acute appendicitis with perforation, localized peritonitis, and gangrene, without abscess (principal); N13.30 Unspecified hydronephrosis; I95.2 Hypotension due to drugs; N73.6 Female pelvic peritoneal adhesions (postinfective); D64.9 Anemia, unspecified; E87.6 Hypokalemia; Z20.822 Contact with and (suspected) exposure to COVID-19; Z91.013 Allergy to seafood
CPT/HCPCS: 36415; 74177; 80048; 80053; 80076; 81003; 81025; 82947; 83690; 83735; 84100; 85014; 85018; 85025; 86850; 86900; 86901; 87811; 88304; 94010; 96361; 96365; 96366; 99285; J1100; J1170; J2001; J2370; J2405; J2543; J2550; J2704; J2710; J3010; J3480; J7030; J7040; J7120; Q9967